=== PATIENT | female | born 1940 | race Caucasian/White ===

== ENCOUNTER → 2016-03-28 | Outpatient (CLI) | payer MEDICARE, MEDICAID | LOC: SL 21:08 | PROVIDERS: ATTEND Internal Medicine | DX: G47.33 Obstructive sleep apnea (adult) (pediatric) (principal) ==

== ENCOUNTER → 2016-08-05 | Outpatient (CLI) | payer MEDICARE, MEDICAID ==
--- NOTE | 2016-08-05 13:19 | CT ---
EXAM DESCRIPTION: Abdoment/Pelvis w/o Contrast CLINICAL HISTORY: ACUTE CYSTITIS WITHOUT HEMATURIA COMPARISON: February 25, 2014 TECHNIQUE: Noncontrast transaxial CT images of the abdomen and pelvis are obtained. This exam was performed according to our departmental dose-optimization program, which includes automated exposure control, adjustment of the mA and/or kV according to patient size and/or use of iterative reconstruction technique . FINDINGS: The visualized lung bases show increased AP diameter of the lower chest mild edematous changes seen. Stable 2.1 cm low-attenuation lesion in the left lobe of the liver. The liver is mildly enlarged at 17.4 cm. The spleen is borderline 12.8 cm. Noncontrast appearance of the pancreas and adrenal glands are unremarkable. Cholecystectomy changes are stable. Moderate atherosclerotic disease. Right kidney is small compared to the left. 2 mm nonobstructing calcification in an anterior lower pole calyx of the left kidney is seen. No ureteral calcification or obstruction is seen. Urinary bladder is normally distended and unremarkable. No obvious bladder wall thickening is seen. The uterus and adnexa are unremarkable. Appendix is within normal limits. No small bowel obstruction or bowel wall thickening is seen. The stomach is contracted and not well evaluated. Moderate to severe scattered diverticuli of the colon are noted most prominent in the descending to sigmoid region without associated inflammatory changes or fluid collections. No pathologic lymphadenopathy seen. Cutaneous soft tissue fat stranding and air in the right greater than left gluteal region suggests sequela of prior injections. Osseous structures show no aggressive bony lesions. Moderate degenerative changes of the thoracic and lumbar spine are seen. Grade 1 spondylolisthesis of L4 on L5 is seen. Small fat-containing umbilical hernia. No pathologic lymphadenopathy. IMPRESSION: Minimal nonobstructing left nephrolithiasis. The right kidney is somewhat small compared to the left. Urinary bladder is unremarkable noncontrast CT imaging. Moderate to severe colon diverticulosis without CT evidence of diverticulitis. Electronically signed by: Carlos Gomez MD 08/05/2016 1:20 PM CDT
== END ==
LOC: GMAM 12:56
PROVIDERS: ATTEND Family Medicine
DX: N30.00 Acute cystitis without hematuria (principal); N20.0 Calculus of kidney; K57.30 Diverticulosis of large intestine without perforation or abscess without bleeding

== ENCOUNTER → 2016-11-08 | Outpatient (CLI) | payer MEDICARE, MEDICAID | LOC: GMAM 14:33 | PROVIDERS: ATTEND Family Medicine | DX: R53.83 Other fatigue (principal) ==

== ENCOUNTER → 2016-11-15 | Outpatient (CLI) | payer MEDICARE, MEDICAID ==
--- NOTE | 2016-11-16 16:52 | MRI ---
EXAM DESCRIPTION: Brain w/oContrast CLINICAL HISTORY: 76 years, Female, CEREBROVASCULAR DISEASE syncope, hallucinations COMPARISON: FINDINGS: Standard triplanar sequences. Diffusion weighted sequence does not show acute infarct. No findings of hemorrhage on gradient sequence. Mildly prominent ventricles and sulci, probably within normal limits for age. Mild microischemic changes periventricular white matter bilaterally. Small punctate areas of high T2 signal in the basal ganglia bilaterally are interpreted as normal variant prominent perivascular spaces. Some mild ethmoid sinus mucosal thickening. IMPRESSION: No acute infarct, hemorrhage or mass. Mild microischemic changes periventricular white matter. Electronically signed by: Yuriy Sanderson MD 11/16/2016 4:51 PM CDT
--- NOTE | 2016-11-16 20:04 | US ---
Procedure: US CAROTID DOPPLER BILATERAL Exam Date: 11/15/2016 8:48 AM CDT Ordering Provider: DOMINGA NAYAK Clinical Indication: CAROTID ARTERY STENOSIS WO CEREBRAL INFARCTION Comparison: None TECHNIQUE : Real-time cerebrovascular ultrasonography was obtained from sternal notch to the angle of the mandible bilaterally utilizing kapoor scale, color flow and spectral Doppler analysis. Systolic velocity ratios were calculated for internal carotid artery to common carotid artery bilaterally. FINDINGS: RIGHT CAROTID BIFURCATION: Mild atherosclerotic plaque. Peak systolic and end-diastolic velocities in the right internal carotid artery are 91 and 19 cm/s. Internal carotid/common carotid ratio is 1.3. Right vertebral flow is antegrade. LEFT CAROTID BIFURCATION: Mild atherosclerotic plaque. Peak systolic and end-diastolic velocities in the left internal carotid artery are 66 and 17 cm/s. Internal carotid/common carotid ratio is 1.3. Left vertebral flow is antegrade. IMPRESSION: 1. Mild atherosclerotic plaque in each carotid bulb and ICA origin. 2. There is no significant stenosis (16-49%) at both ICA origins. 3. Bilateral antegrade vertebral artery flow. Electronically signed by: Richard Napier MD 11/16/2016 8:03 PM CDT
== END | disposition home or self-care (01) ==
LOC: MRI 09:48
PROVIDERS: ATTEND Family Medicine
DX: I65.23 Occlusion and stenosis of bilateral carotid arteries (principal); I67.9 Cerebrovascular disease, unspecified; R30.0 Dysuria; R44.3 Hallucinations, unspecified

== ENCOUNTER → 2017-02-15 | Outpatient (CLI) | payer MEDICARE, MEDICAID ==
--- NOTE | 2017-02-16 08:30 | RAD ---
EXAM DESCRIPTION: Elbow,Left 3 Views CLINICAL HISTORY: 76 years Female, CLOSED FX OF HUMERUS COMPARISON: January 26, 2017 FINDINGS: Again seen are postoperative changes in the left humerus including plate and screw fixation devices over the distal left humerus along its medial and lateral margins. No hardware cortication is identified. Again seen is a nondisplaced, slightly comminuted and largely nonunited distal left humeral fracture, unchanged from the previous. There is a questionable tiny nondisplaced fracture involving the medial margin of the proximal ulna, also stable. No new fracture or malalignment. No definite joint effusion. IMPRESSION: Postoperative changes in the left humerus without apparent hardware complication. Nondisplaced, largely nonunited distal left humeral fracture with probable comminution, not significantly changed from January 26, 2017. Questional nondisplaced proximal ulnar fracture, also stable. Electronically signed by: Henry Cochran MD 02/16/2017 8:28 AM [facility]
== END ==
LOC: RAD 08:00
PROVIDERS: ATTEND Orthopaedic Surgery
DX: S42.302D Unspecified fracture of shaft of humerus, left arm, subsequent encounter for fracture with routine healing (principal)

== ENCOUNTER → 2017-03-20 | Outpatient (CLI) | payer MEDICARE, MEDICAID ==
--- NOTE | 2017-03-20 12:58 | RAD ---
Three-view left elbow. Indication: FX Comparison: February 15, 2017. Impression: Distal humeral fracture status post ORIF redemonstrated with stable alignment. There is questionable mild progressive callus formation across the fracture, however is incompletely united at this time. There is questionable very subtle lucency about the tip of the distal/ulnar most screw which could indicate loosening. This appears new. Attention on follow-up recommended. Osteopenia. If this is a new finding, DEXA scan recommended as well as evaluation for possible osteoporosis treatment. Electronically signed by: Imer Chin MD 03/20/2017 12:57 PM [facility]
== END | disposition home or self-care (01) ==
LOC: RAD 09:39
PROVIDERS: ATTEND Orthopaedic Surgery
DX: S42.302S Unspecified fracture of shaft of humerus, left arm, sequela (principal)

== ENCOUNTER 2017-07-25 17:32 | Observation (INO) | payer MEDICARE, MEDICAID ==
--- NOTE | 2017-07-25 17:35 | HP ---
SUPERVISING PHYSICIAN: Bryant Clemons M.D. CHIEF COMPLAINT: Confusion. HISTORY OF PRESENT ILLNESS: This is a 77 year-old female who was seeing her primary care physician, Dr. Clemons, today. A month or so ago she had seen her neurologist, Dr. Patel, and she was diagnosed with Parkinson's. At that time, she had been taken off of her dementia medication which was Aricept. She was also taken off her Dicyclomine. Initially her response was favorable, but over the last several weeks she has become more and more confused. She has quit taking her medications. Haldol was added at night and there has been poor compliance with that. Her caregiver said she has had confusion and auditory hallucinations. She is at the point where she is unsafe to stay at home by herself, so Dr. Clemons called me about hospital admission and the patient was a direct admission from Dr. Clemons's office. It is to be noted that Dr. Clemons discussed her case with Dr. Patel and he recommended that she be placed on Risperdal 0.5 mg t.i.d. and Haldol as needed. PAST MEDICAL HISTORY: Difficult to obtain due to the patient's mental status. Most of the information was obtained from her medical chart. 1. Carotid artery stenosis. 2. Hypertension. 3. Chronic obstructive pulmonary disease. 4. Diverticulosis. 5. Parkinson's disease. 6. Coronary artery disease. PAST SURGICAL HISTORY: 1. Gallbladder. 2. Left elbow open reduction and internal fixation. 3. Bilateral tubal ligation. 4. Right and left knee surgery. 5. Parathyroid surgery. 6. Right hand surgery. 7. Left sided carotid stent placement. OUTPATIENT MEDICATIONS: Per the EMR and awaiting verification. ALLERGIES: MORPHINE SULFATE. SOCIAL HISTORY: She lives in [place]. She has previously lived at [facility]. She has never smoked but she was exposed to a lot of second hand smoke. She drinks alcohol very infrequently and there is no history of illicit drug use. REVIEW OF SYSTEMS: Unable to obtain at this time due to the patient's mental status and no report specialist at bedside. PHYSICAL EXAMINATION: VITAL SIGNS: She is afebrile, heart rate 55, blood pressure 155/72, respiratory rate 16, O2 sat is 98% on room air. GENERAL: This is a 77 year-old female patient who is lying in there hospital bed. She has a very flat affect. She is in no acute distress. HEENT: Normocephalic and atraumatic. Pupils are equal and reactive. Oropharynx is clear. NECK: Supple without mass. RESPIRATORY: Essentially clear to auscultation bilaterally. She is slightly diminished at the bases. CARDIOVASCULAR: Regular rate and rhythm. GASTROINTESTINAL: Abdomen is soft, nondistended, non-tender. Bowel sounds are positive. EXTREMITIES: No cyanosis, clubbing or edema. NEUROLOGIC: She is awake and alert but is uncommunicative at this time. She will answer simple yes/no questions. PSYCHIATRIC: She has a flat affect. She is slightly anxious. Her memory is poor as she cannot recall being in the doctor's office. LABORATORY: Electrolytes are basically within normal limits with the exception her BUN is 61, creatinine 2.39. CBC is within normal limits. We are awaiting urinalysis. Chest x-ray shows increased opacities in the right lung base and left retrocardiac region may represent infiltrate versus atelectasis. Recommend correlating clinically. No significant pleural effusion or pneumothorax. Her lung volumes are shallow and associated with bronchovascular crowding. All other labs and films have been reviewed via the EMR. ASSESSMENT: 1. Altered mental status with confusion and auditory hallucinations. 2. Dehydration. 3. Renal insufficiency with creatinine of 2.4 on admission. Her baseline creatinine is 1.3. 4. Chronic obstructive pulmonary disease. 5. Parkinson's disease. 6. Coronary artery disease. PLAN: We will place the patient in Observation. I will give her some fluids. Repeat her labs in the morning. Her home medications will be restarted as well as adding Risperdal 0.5 mg t.i.d. as recommended by Dr. Patel, neurologist. Will hold off on adding any Haldol at this time as she is not combative or having delusions at this time, and she will not admit to hearing voices. I will add some breathing treatments as well as Protonix for ulcer prophylaxis and Lovenox for DVT prophylaxis. She has been a previous resident of [facility] so we can talk with [facility] and her family tomorrow and see if that may be a discharge option. Otherwise will continue to monitor closely and follow as needed. Dr. Clemons is the collaborating physician available for consultation. #[id number] [facility]
[2017-07-25] MEDS ORDERED: SODIUM CHLORIDE 0.9% (FLUSH) 10 ML SYG IV PRN (17:45)
[2017-07-25] MEDS ORDERED: IV SET AND CAP CHANGE INJ INJ SCH (18:00)
--- NOTE | 2017-07-25 18:30 | RAD ---
EXAM DESCRIPTION: Chest,1 View CLINICAL HISTORY: confusion COMPARISON: None Available. Findings/impression: Single upright portable AP view of the chest. Lung volumes are shallow with associated bronchovascular crowding. Tortuosity noted of the thoracic aorta. Cardiac silhouette shows cardiomegaly. Pulmonary vascularity is within normal limits. Increased opacities in the right lung base and left retrocardiac region may represent infiltrate versus atelectasis. Please correlate clinically. No significant pleural effusion. No pneumothorax. Electronically signed by: Kendrick Schaefer MD 07/25/2017 6:29 PM CDT
[2017-07-25] MEDS ORDERED: SODIUM CHLORIDE 0.45% 1000ML 1,000 ML IVS ONE (19:08)
[2017-07-25] MEDS ORDERED: ACETAMINOPHEN 325 MG TAB PO PRN (19:48)
[2017-07-25] MEDS ORDERED: LEVALBUTEROL NEBS 1.25 MG/3 ML VIAL NEB PRN (19:48)
[2017-07-25] MEDS ORDERED: LEVALBUTEROL NEBS 1.25 MG/3 ML VIAL INH SCH (20:00)
[2017-07-25] MEDS ORDERED: ENOXAPARIN SODIUM 30 MG/0.3 ML SYG SUBCU SCH (20:00)
[2017-07-25] MEDS ORDERED: PANTOPRAZOLE SODIUM IV 40 MG VIAL IV SCH (20:00)
[2017-07-25] MEDS ORDERED: SODIUM CHLORIDE 0.9% (FLUSH) 10 ML SYG IV SCH (21:00)
[2017-07-25] MEDS ORDERED: BUDESONIDE/FORMOTEROL 160/4.5 60 PUFF/6 GM INH INH SCH (21:00)
[2017-07-25] MEDS: MONTELUKAST 10 MG TAB PO SCH (21:04)
[2017-07-25] MEDS: METOPROLOL SUCCINATE XL 100 MG TAB PO SCH (21:04)
[2017-07-25] MEDS: risperiDONE 1 MG TAB PO SCH (21:05)
[2017-07-25] MEDS: SODIUM CHLORIDE 0.45% 1000ML 1,000 ML IV PRN (21:55)
[2017-07-26] MEDS ORDERED: POTASSIUM CHLORIDE 10 MEQ TAB PO ONE (06:36)
[2017-07-26] MEDS ORDERED: FENOFIBRIC ACID 135 MG CAP ONE (06:36)
[2017-07-26] MEDS ORDERED: ESCITALOPRAM 10 MG TAB ONE (06:36)
[2017-07-26] MEDS ORDERED: CELECOXIB 100 MG CAP ONE (06:36)
[2017-07-26] MEDS: CLOPIDOGREL 75 MG TAB PO SCH (08:02)
[2017-07-26] MEDS: POTASSIUM CHLORIDE 10 MEQ TAB PO SCH (08:02)
[2017-07-26] MEDS: risperiDONE 1 MG TAB PO SCH ×3 (08:02→20:17)
[2017-07-26] MEDS: CALCITRIOL 0.25 MCG CAP PO SCH (08:02)
[2017-07-26] MEDS: RANOLAZINE 500 MG TAB PO SCH (08:02)
[2017-07-26] MEDS: METOPROLOL SUCCINATE XL 100 MG TAB PO SCH ×2 (08:02→20:16)
[2017-07-26] MEDS: ESCITALOPRAM 10 MG TAB PO SCH (08:02)
[2017-07-26] MEDS: amLODIPine BESYLATE 5 MG TAB PO SCH (08:03)
[2017-07-26] MEDS: ASPIRIN (ENTERIC COATED) 81 MG TAB PO SCH (08:03)
[2017-07-26] MEDS: CELECOXIB 100 MG CAP PO SCH ×2 (08:03→16:25)
[2017-07-26] MEDS: hydroCHLOROthiazide 25 MG TAB PO SCH (08:05)
[2017-07-26] MEDS: VALSARTAN 80 MG TAB PO SCH (08:05)
[2017-07-26] MEDS: FENOFIBRIC ACID 135 MG CAP PO SCH (08:07)
[2017-07-26] MEDS: NYSTATIN POWDER 15GM BTTL TOP SCH ×4 (08:08→20:17)
[2017-07-26] MEDS: SODIUM CHLORIDE 0.45% 1000ML 1,000 ML IV PRN (08:12)
[2017-07-26] MEDS: TIOTROPIUM INHALER INH SCH (08:17)
[2017-07-26] MEDS: BUDESONIDE/FORMOTEROL 160/4.5 60 PUFF/6 GM INH INH SCH ×2 (08:18→21:31)
[2017-07-26] MEDS: LEVALBUTEROL NEBS 1.25 MG/3 ML VIAL NEB SCH ×2 (08:19→21:31)
[2017-07-26] MEDS ORDERED: POTASSIUM CHLORIDE 20 MEQ TAB PO ONE (08:19)
[2017-07-26] MEDS: LORATADINE 10 MG TAB PO SCH (08:51)
[2017-07-26] MEDS ORDERED: NON-FORMULARY MEDICATION 1 EA MIS (Valsartan-Hydrochlorothiazide [Valsartan/Hydrochlorothi PO SCH (09:00)
--- NOTE | 2017-07-26 17:26 | PN ---
DATE: 07/26/17 SUPERVISING PHYSICIAN: Bryant Clemons M.D. SUBJECTIVE: The patient is lying quietly in her hospital bed. She initially is very hesitant to speak. After discussing her condition, she does admit to hearing voices that tell her what to do but she cannot specifically say what the voices are telling her to do. We have discussed that she may need to go to [facility] for some time. She will not make a comment one way or the other if she is agreeable to that. A nurse, Simone Sanchez, has spoken to her son and plans are in place to discharge her to [facility] tomorrow. OBJECTIVE: VITAL SIGNS: She is afebrile, heart rate 58, blood pressure 124/60, respiratory rate 16, O2 sat 94% on room air. RESPIRATORY: Essentially clear to auscultation bilaterally. CARDIAC: Regular rate and rhythm. GASTROINTESTINAL: Abdomen is soft, nondistended, non-tender. Bowel sounds are positive. NEUROLOGIC: She is awake. She has a flat affect. She answers in very short phrases or answers just some yes/no questions. LABORATORY: WBCs are 4.6, hemoglobin 11.6, hematocrit 35. Sodium 138, potassium 3.4, chloride 106, carbon dioxide 23, BUN 52, creatinine 1.7, glucose 88, serum osmolality 289.1, calcium 9.1. Urinalysis is within normal limits. All other labs and films have been reviewed via the EMR. ASSESSMENT: 1. Altered mental status with confusion and auditory hallucinations. 2. Dehydration. 3. Renal insufficiency with creatinine of 2.4 on admission. Her baseline creatinine is 1.3. 4. Chronic obstructive pulmonary disease. 5. Parkinson's disease. 6. Coronary artery disease. PLAN: We will continue present supportive care. [facility] has accepted the patient for admission tomorrow. Plan for discharge tomorrow to [facility]. I have discussed her discharge plan with her, although she has made little comment. At this point, I believe that she needs assistance as she does admit to the auditory hallucinations. Dr. Clemons spoke with her neurologist, Dr. Patel, and he will see her next week in clinic on when he is here in town. Need to contact Dr. Clemons's office to facilitate that appointment on 08/03/17. I will check a BMP in the morning. We will monitor the patient overnight. Plan for discharge tomorrow. Treat her as needed. #[id number] [facility]
[2017-07-26] MEDS: MONTELUKAST 10 MG TAB PO SCH (20:16)
[2017-07-26] MEDS ORDERED: PANTOPRAZOLE SODIUM IV 40 MG VIAL IV SCH (21:00)
[2017-07-26] MEDS ORDERED: ENOXAPARIN SODIUM 30 MG/0.3 ML SYG SUBCU SCH (21:00)
[2017-07-26] MEDS ORDERED: PANTOPRAZOLE SODIUM TAB 40 MG PO SCH (21:00)
[2017-07-27] MEDS: POTASSIUM CHLORIDE 10 MEQ TAB PO SCH (08:01)
[2017-07-27] MEDS: CELECOXIB 100 MG CAP PO SCH ×2 (08:01→16:54)
[2017-07-27] MEDS: BUDESONIDE/FORMOTEROL 160/4.5 60 PUFF/6 GM INH INH SCH (08:35)
[2017-07-27] MEDS: LEVALBUTEROL NEBS 1.25 MG/3 ML VIAL NEB SCH (08:35)
[2017-07-27] MEDS: TIOTROPIUM INHALER INH SCH (08:35)
[2017-07-27] MEDS: RANOLAZINE 500 MG TAB PO SCH (09:23)
[2017-07-27] MEDS: LORATADINE 10 MG TAB PO SCH (09:23)
[2017-07-27] MEDS: CLOPIDOGREL 75 MG TAB PO SCH (09:23)
[2017-07-27] MEDS: ASPIRIN (ENTERIC COATED) 81 MG TAB PO SCH (09:23)
[2017-07-27] MEDS: VALSARTAN 80 MG TAB PO SCH (09:23)
[2017-07-27] MEDS: CALCITRIOL 0.25 MCG CAP PO SCH (09:23)
[2017-07-27] MEDS: METOPROLOL SUCCINATE XL 100 MG TAB PO SCH (09:23)
[2017-07-27] MEDS: amLODIPine BESYLATE 5 MG TAB PO SCH (09:24)
[2017-07-27] MEDS: hydroCHLOROthiazide 25 MG TAB PO SCH ×2 (09:24→10:11)
[2017-07-27] MEDS: ESCITALOPRAM 10 MG TAB PO SCH (09:24)
[2017-07-27] MEDS: risperiDONE 1 MG TAB PO SCH ×2 (09:24→14:57)
[2017-07-27] MEDS: FENOFIBRIC ACID 135 MG CAP PO SCH (09:24)
[2017-07-27] MEDS: NYSTATIN POWDER 15GM BTTL TOP SCH ×3 (09:34→17:04)
[2017-07-27] MEDS ORDERED: VALSARTAN 80 MG TAB PO SCH (10:00)
[2017-07-27] MEDS: METOPROLOL TARTRATE 50 MG TAB PO SCH ×2 (10:11→16:54)
[2017-07-27 14:06] VITALS: BP 129/82; TEMP 96.6; O2SAT 98
[2017-07-27] MEDS ORDERED: amLODIPine BESYLATE 5 MG TAB PO SCH (21:00)
--- NOTE | 2017-07-28 08:43 | DS ---
SUPERVISING PHYSICIAN: Bryant Clemons MD DISCHARGE DIAGNOSIS: 1. Altered mental status with confusion and auditory hallucinations. 2. Dehydration. 3. Renal insufficiency with creatinine of 2.4 on admission. Her baseline creatinine is 1.3. 4. Chronic obstructive pulmonary disease. 5. Parkinson's disease. 6. Coronary artery disease. HISTORY OF PRESENT ILLNESS: This is a 77-year-old female patient who was seeing her primary care physician, Dr. Clemons, on the date of admission. A month or so ago, she had seen her neurologist, Dr. Patel, and she was diagnosed with Parkinson's. At that time, she had been taken off of her dementia medication, which was Aricept. She was also taken off her Dicyclomine. Initially, her response was favorable, but over the last several weeks prior to her being seen in her primary care physician's office, she became increasing more confused. She had quit taking her routine medications. Haldol was given, but she had poor compliance with all of her medications. Her caregiver actually said that in addition to the confusion, she also had auditory hallucinations. It was unsafe for her to stay at home by herself, so Dr. Clemons called me for hospital admission where we could evaluate her delusions and hallucinations as well as monitor her medication response. HOSPITAL COURSE: The patient was not combative during her stay. Her home medications were all resumed except for her antihypertensive. At the suggestion of her neurologist, Dr. Patel, Risperdal 0.5 mg t.i.d. was also added. Our [facility] [employer] department was in contact with the patient's family and it was felt that given her condition and her inability to return home safely that she should go to [facility]. She has been a previous resident at that facility. [facility] accepted her and the patient was to be transferred to that facility this morning. Early this morning , her vital signs showed a heart rate of 54 to 60 and her systolic blood pressure ran between 106 and 125. She was on several high dose antihypertensive and p.r.n. clonidine, so several adjustments were made to her antihypertensives for discharge. Her clonidine was continued as needed. Her hydrochlorothiazide was continued at 25 mg daily. Her Norvasc was changed to 5 mg at night. Metoprolol succinate was 100 mg b.i.d. and was changed to metoprolol tartrate 50 mg b.i.d.. Her valsartan was decreased from 160 mg to 80 mg daily. Medication was given with changes as described above. Her CBC remained stable during her stay. Her electrolytes were stable with the exception of her magnesium was 1.7 and she received supplementation for that. Today, she will be discharged to [facility]. DISCHARGE PLAN: The patient will be discharged to [facility] in stable condition. She is to resume her home medications with the exception of the changes as stated above. She will have a followup appointment with Dr. Clemons on 08/01/17 at 10 AM. At that time, she is to get a followup appointment with Dr. Patel, neurologist, on 08/03/17. She is to return to the clinic or followup with Dr. Clemons's for any problems or complications. DISCHARGE MEDICATIONS: 1. Imitrex. 2. Symbicort. 3. Spiriva. 4. Vitamin B12. 5. Potassium chloride. 6. Lexapro. 7. Ranexa. 8. Atrovent nasal. 9. Clonidine. 10. Plavix. 11. Promethazine. 12. Diphenhydramine. 13. Aspirin. 14. Acetaminophen. 15. Sara Allergy. 16. Celebrex. 17. Nitroglycerin. 18. Valsartan. 19. Hydrochlorothiazide. 20. Pantoprazole. 21. Fenofibrate. 22. Singulair. 23. Calcitrol. 24. Metoprolol tartrate. 25. Nystatin. 26. Risperdal. 27. Aml[address]ine. Dr. Clemons is the collaborating physician and available for consultation. #[id number] [facility]
== END 2017-07-27 17:15 ==
LOC: INTOOBSV 17:32 → MS 17:32
PROVIDERS: ADMIT Nurse Practitioner Acute Care; ATTEND Nurse Practitioner Acute Care
DX: R41.82 Altered mental status, unspecified (principal); R44.0 Auditory hallucinations; E86.0 Dehydration; N28.9 Disorder of kidney and ureter, unspecified; J44.9 Chronic obstructive pulmonary disease, unspecified; G31.83 Neurocognitive disorder with Lewy bodies; F02.80 Dementia in other diseases classified elsewhere, unspecified severity, without behavioral disturbance, psychotic disturbance, mood disturbance, and anxiety; I25.10 Atherosclerotic heart disease of native coronary artery without angina pectoris; Z79.51 Long term (current) use of inhaled steroids; Z79.02 Long term (current) use of antithrombotics/antiplatelets; Z79.82 Long term (current) use of aspirin; Z79.899 Other long term (current) drug therapy; Z88.6 Allergy status to analgesic agent; Z77.22 Contact with and (suspected) exposure to environmental tobacco smoke (acute) (chronic)
CPT/HCPCS: 96361; 96372 ×2; 96374; J1650 ×2; J7799 ×3; J7614 ×4; 80048 ×2; 80053; 36415 ×2; 81001; 85025 ×3; 83735; 71045; 94640 ×9; 94760 ×11; 94664; G0378

== ENCOUNTER → 2020-03-17 | Outpatient (CLI) | payer MEDICARE, MEDICAID | LOC: GOCC 14:12 | PROVIDERS: ATTEND Family Medicine | DX: N39.0 Urinary tract infection, site not specified (principal) ==